=== PATIENT | female | born 1975 | race Caucasian/White ===

== ENCOUNTER → 2016-08-24 | Outpatient (CLI) | payer BC | LOC: MC.RAD 14:50 | DX: Z12.31 Encounter for screening mammogram for malignant neoplasm of breast (principal); R93.8 Abnormal findings on diagnostic imaging of other specified body structures ==

== ENCOUNTER → 2016-08-30 | Outpatient (CLI) | payer BC | LOC: MC.RAD 14:00 | DX: R92.8 Other abnormal and inconclusive findings on diagnostic imaging of breast (principal) ==

== ENCOUNTER → 2019-10-03 | Outpatient (CLI) | payer BC | LOC: COL.RAD 14:30 | DX: S06.0X0D Concussion without loss of consciousness, subsequent encounter (principal); S90.01XA Contusion of right ankle, initial encounter; M19.071 Primary osteoarthritis, right ankle and foot ==